=== PATIENT | male | born 1990 | race Caucasian/White ===

== ENCOUNTER 2018-03-31 15:44 | Inpatient (IN) | payer SELFPAY ==
[~2018-03-31] VITALS: Ht 185.4 cm; Wt 91.7 kg
[2018-03-31] MEDS ORDERED: HYDROMORPHONE 1MG/1ML INJ IV STA (15:48)
[2018-03-31] MEDS ORDERED: HYDROMORPHONE 2MG/ML 2 MG/ML ML ONE ×2 (15:51→18:59)
[2018-03-31] MEDS ORDERED: SODIUM CHLORIDE 0.9% 1000ML 1,000 ML ONE ×2 (15:53→15:59)
[2018-03-31] MEDS ORDERED: SODIUM CHLORIDE 0.9% 1000ML 1,000 ML IV STA ×2 (16:00)
[2018-03-31] MEDS ORDERED: CEFAZOLIN SOD 1 GM in WATER STERILE 10ML VIAL 10 ML IV STA (16:12)
[2018-03-31] MEDS ORDERED: CEFAZOLIN SOD 1 GM/D5W 50ML 50 ML IV ONE (16:13)
[2018-03-31 16:14] LABS: BASOPHILS # (AUTO) 0.1 (0.0-0.1); BASOPHILS % 1.3 % (0.0-1.0); EOSINOPHILS # (AUTO) 1.1 (0.0-0.4); EOSINOPHILS % 11.1 % (0.0-6.0); HEMOGLOBIN 12.5 g/dL (14.0-18.0); LYMPHOCYTES # (AUTO) 3.4 (1.0-3.2); LYMPHOCYTES % 35.4 % (18.0-39.1); MEAN CORPUSCULAR HEMOGLOBIN 32.2 pg (28-32); MEAN CORPUSCULAR HGB CONC 34.7 g/dL (31-35); MEAN CORPUSCULAR VOLUME 92.8 fL (81-99); MONOCYTES % 10.1 % (4.4-11.3); PLATELET COUNT 354 x10e3/uL (140-360); RED BLOOD COUNT 3.88 x10e6/uL (4.3-5.7); RED CELL DISTRIBUTION WIDTH 11.9 % (11.7-14.4)
[2018-03-31] MEDS ORDERED: HYDROMORPHONE 2MG/ML 2 MG/ML ML IV PRN (16:15)
[2018-03-31] MEDS ORDERED: VANCOMYCIN 1GM/NS 250 ML 250 ML IV STA (16:27)
[2018-03-31] MEDS ORDERED: PIPER-TAZ 3.375 GM 50 ML IV STA (16:27)
[2018-03-31] MEDS ORDERED: CEFAZOLIN SOD 1 GM VIAL IV ONE (16:30)
--- NOTE | 2018-03-31 16:31 | Diagnostic Imaging Report ---
EXAM: FOREARM RIGHT 2 VIEW DATE: 03/31/2018 3:56 PM INDICATION: Injury/laceration COMPARISON: None FINDINGS: There is a large laceration in the mid forearm with overlying bandage material. There is minimal cortical irregularity in the radius without kong fracture. Adjacent oblique lucency has the appearance of vascular channel. IMPRESSION: Large soft tissue injury of the forearm with minimal cortical disruption of the mid radius. Signed by: Dr. Corby Hogue MD on 03/31/2018 4:28 PM
[2018-03-31 16:34] LABS: ANION GAP 14.5 mmol/L (8-16); BLOOD UREA NITROGEN 12 mg/dL (7-26); BUN/CREATININE RATIO 13 (6-25); CALCIUM 9.7 mg/dL (8.4-10.2); CARBON DIOXIDE 23 mmol/L (22-29); CHLORIDE 105 mmol/L (98-107); CREATININE, SERUM 0.91 mg/dL (0.72-1.25); EST GLOMERULAR FILTRATION RATE > 60 ML/MIN (60-); GLUCOSE 138 mg/dL (74-118); POTASSIUM 3.5 mmol/L (3.5-5.1); SODIUM 139 mmol/L (136-145)
[2018-03-31] MEDS ORDERED: BUPIVACAINE HCL 0.5% INJ 30 ML VIAL INJ ONE (16:42)
[2018-03-31] MEDS ORDERED: MUPIROCIN 2% OINT 22 GM TUBE ONE (16:42)
[2018-03-31 16:44] LABS: INR 0.93; PROTHROMBIN TIME 13.3 seconds (11.9-14.5)
[2018-03-31] MEDS ORDERED: FENTANYL CITRATE/PF 100MCG/2 ML INJ IV ONE (16:45)
[2018-03-31] MEDS ORDERED: FENTANYL CITRATE/PF 100MCG/2 ML INJ ONE ×3 (16:47→19:27)
[2018-03-31] MEDS ORDERED: BACITRACIN 50,000 UNIT VIAL ONE (17:05)
[2018-03-31] MEDS ORDERED: TETANUS/DIPHTHERIA TOX ADULT 0.5 ML SYR ONE (17:12)
[2018-03-31] MEDS ORDERED: TETANUS/DIPHTHERIA TOX ADULT 0.5 ML SYR IM ONE (17:15)
[2018-03-31] MEDS ORDERED: MIDAZOLAM HCL 2 MG/2 ML VIAL ONE (18:19)
[2018-03-31] MEDS ORDERED: MEPERIDINE HCL INJ 50 MG/ML INJ ONE ×2 (18:30→18:42)
[2018-03-31] MEDS ORDERED: ONDANSETRON HCL INJ 2 MG/ML VIAL IV PRN (19:30)
[2018-03-31] MEDS ORDERED: ACETAMINOPHEN 325 MG TAB PO PRN (19:30)
[2018-03-31] MEDS ORDERED: HYDRALAZINE HCL 20 MG/ML VIAL IV PRN (19:30)
[2018-03-31] MEDS ORDERED: ACETAMINOPHEN/CODEINE 300MG - 30MG TAB PO PRN (19:30)
[2018-03-31] MEDS ORDERED: PROPOFOL IV EMULSION 10 MG/ML 20 ML VIAL ONE (19:39)
[2018-03-31] MEDS ORDERED: SEVOFLURANE INHAL SOLN 250 ML PEN BTL ONE (19:39)
[2018-03-31] MEDS ORDERED: ONDANSETRON HCL INJ 2 MG/ML VIAL ONE (19:39)
[2018-03-31] MEDS ORDERED: LIDOCAINE HCL 2% LOCAL INJ 5 ML SDV VIAL INJ ONE (19:39)
[2018-03-31] MEDS ORDERED: DEXAMETHASONE SOD PHOS INJ 4 MG/ML VIAL ONE (19:39)
[2018-03-31 19:43] VITALS: BP 134/74
[2018-03-31 20:00] VITALS: BP 134/74
[2018-03-31] MEDS ORDERED: HYDROMORPHONE 1MG/1ML INJ IV PRN (20:30)
[2018-03-31] MEDS: DEXTROSE 5%/LACTATED RINGERS 1,000 ML IV SCH (21:01)
[2018-03-31] MEDS: HYDROCODONE/APAP 7.5MG-325MG 1 EA TAB PO PRN (21:02)
[2018-03-31] MEDS: CEFAZOLIN SOD 1 GM VIAL IV SCH (23:57)
[2018-03-31] MEDS: HYDROMORPHONE 2MG/ML 2 MG/ML ML IV PRN (23:57)
[2018-04-01] VITALS: BP 136/63
[2018-04-01] MEDS ORDERED: CEFAZOLIN SOD 1 GM in WATER STERILE 10ML VIAL 10 ML IV SCH ×2
[2018-04-01 03:52] LABS: BASOPHILS % 0.2 % (0.0-1.0); EOSINOPHILS % 0.1 % (0.0-6.0); HEMATOCRIT 32.7 % (38.2-49.6); HEMOGLOBIN 11.2 g/dL (14.0-18.0); LYMPHOCYTES # (AUTO) 0.9 (1.0-3.2); LYMPHOCYTES % 7.3 % (18.0-39.1); MEAN CORPUSCULAR HEMOGLOBIN 31.9 pg (28-32); MEAN CORPUSCULAR HGB CONC 34.3 g/dL (31-35); MEAN CORPUSCULAR VOLUME 93.2 fL (81-99); MONOCYTES # (AUTO) 0.9 (0.2-0.8); NEUTROPHILS # (AUTO) 10.5 (2.1-6.9); NEUTROPHILS % 85.1 % (38.7-80.0); PLATELET COUNT 284 x10e3/uL (140-360); RED BLOOD COUNT 3.51 x10e6/uL (4.3-5.7); RED CELL DISTRIBUTION WIDTH 11.9 % (11.7-14.4)
[2018-04-01] MEDS: HYDROCODONE/APAP 7.5MG-325MG 1 EA TAB PO PRN ×2 (03:53→10:57)
[2018-04-01 04:00] VITALS: BP 110/53
[2018-04-01 04:10] LABS: ANION GAP 12.8 mmol/L (8-16); BLOOD UREA NITROGEN 8 mg/dL (7-26); BUN/CREATININE RATIO 12 (6-25); CALCIUM 8.9 mg/dL (8.4-10.2); CARBON DIOXIDE 22 mmol/L (22-29); CHLORIDE 105 mmol/L (98-107); CREATININE, SERUM 0.69 mg/dL (0.72-1.25); EST GLOMERULAR FILTRATION RATE > 60 ML/MIN (60-); GLUCOSE 169 mg/dL (74-118); MAGNESIUM 1.8 MG/DL (1.3-2.1); POTASSIUM 3.8 mmol/L (3.5-5.1); SODIUM 136 mmol/L (136-145)
[2018-04-01] MEDS: DEXTROSE 5%/LACTATED RINGERS 1,000 ML IV SCH ×2 (05:09→12:15)
[2018-04-01] MEDS ORDERED: FAMOTIDINE 20 MG TAB PO SCH (07:30)
[2018-04-01 08:00] VITALS: BP 115/56
[2018-04-01] MEDS: CEFAZOLIN SOD 1 GM VIAL IV SCH ×2 (08:10→15:35)
[2018-04-01] MEDS: HYDROMORPHONE 2MG/ML 2 MG/ML ML IV PRN ×2 (08:10→15:45)
[2018-04-01 08:20] VITALS: BP 115/56
--- NOTE | 2018-04-01 08:40 | Operative Report ---
DATE OF PROCEDURE: March 31, 2018 PREOPERATIVE DIAGNOSIS: Chainsaw injury, right forearm, dorsal radial aspect, mid level. POSTOPERATIVE DIAGNOSES: 1. Laceration of dorsal sensory branch, radial nerve. 2. Laceration of extensor carpi radialis brevis. 3. Laceration of extensor carpi radialis longus. 4. Laceration of extensor digitorum communis. PROCEDURES: 1. Exploration of penetrating injury, right forearm. 2. Debridement of radius and soft tissues. 3. Primary neurorrhaphy of radial sensory nerve. 4. Repair of musculotendinous units, extensor carpi radialis longus and extensor carpi radialis brevis, muscle repair of extensor digitorum communis. ANESTHESIA: General. HISTORY: The patient is a 28-year-old right hand dominant male who today sustained a chainsaw injury to the dorsal radial aspect of the right forearm just at the musculotendinous units. The patient was seen urgently and taken to the OR for urgent exploration and repair of injured structures. On physical exam in the emergency room, the patient was able to extend the wrist, however, it had ulnar deviation and all fingers including the thumb extended. The risks, benefits, and alternatives of treatment were discussed with the patient and the family and they are prepared to undergo the procedures outlined. DETAILS OF PROCEDURE: Patient was marked preoperatively in the holding area, is brought to the operating theater, and after the induction of adequate general anesthesia, the right upper extremity was exsanguinated, and a tourniquet was inflated to a pressure of 250 mmHg. This was done to prevent significant blood loss during the prep. At this point, the bandage was removed and the arm was prepped and draped in a sterile fashion. The procedure was begun by pulse lavaging the wound with 3 liters of antibiotic containing solution in order to remove all of the particulate matter and cleanse the wound. Once this was done, exploration of the wound revealed the cortical surface of the radius to have been damaged. Small bony fragments were then removed. On the radial side of the wound, the radial sensory nerve was identified both proximally and distally. It had its ends transected approximately 2 mm on each side to remove the damaged tissue, and then a primary neurorrhaphy using 6-0 Prolene sutures in an interrupted epineural fashion was performed. At this point, the ECRL and ECRB tendons just dorsal and radial to the nerve were identified, and with the wrist on extension, these musculotendinous units were repaired with 4-0 Prolene in figure-of-8 fashion. The EDC muscle belly just ulnar to these tendons was debrided and then repaired using 3-0 Vicryl sutures in interrupted figure-of-8 fashion. The superficial tissues were sharply debrided of the devitalized tissues, and a 1/4-inch Jazmine drain was placed subcutaneously, and the skin was approximated with surgical clips. A sterile bulking conforming bandage was applied to the forearm, wrist, and hand. Fiberglass splint was fashioned to maintain the wrist in extension and the MPs at 60 to 70 degrees of flexion and the IPs neutral. This was held in place with loosely wrapped Graham wrap. Tourniquet was deflated. All the fingers pinked up nicely. The wound was hemostatic, and the patient was returned to recovery room in satisfactory condition and then admitted for postoperative care and treatments. Job#: [id number]
[2018-04-01] MEDS ORDERED: MUPIROCIN 2% OINT 22 GM TUBE TOP SCH (09:00)
[2018-04-01 12:08] VITALS: BP 121/57
[2018-04-01] MEDS ORDERED: KEFLEX500 MG PO (15:16)
[2018-04-01] MEDS ORDERED: NORCO 7.5-3251 EACH PO (15:17)
[2018-04-01 16:30] VITALS: BP 121/67
--- NOTE | 2018-04-01 16:53 | Discharge Summary ---
ADMITTING DIAGNOSES 1. Right forearm chainsaw injury. 2. Bradycardia. 3. Tobacco use. DISCHARGE DIAGNOSES 1. Right forearm chainsaw injury. 2. Bradycardia. 3. Tobacco use. HISTORY: The patient has no medical history and no surgical history. HOSPITAL COURSE: This 28-year-old male was admitted status post chainsaw injury to right forearm yesterday while at work. He says he was cutting a tree limb, and the chainsaw slipped. The pain is worsened with lifting the affected arm and improved with IV pain meds. Immediately following the injury, the patient noted bleeding and pain. Numbness began after holding pressure to reduce bleeding. On admission, the patient had x-ray of the right forearm that showed a large soft-tissue injury of the forearm with minimal cortical disruption of the mid radius. The patient was then sent to surgery and had exploration of penetrating injury of the right forearm, debridement of the radius and soft tissues, primary neurorrhaphy of radial sensory nerve, repair of musculotendinous units, extensor carpi radialis longus and extensor carpi radialis brevis, muscle repair of extensor digitorum communis. After surgery, the patient is feeling much better. Vital signs are stable. Patient is afebrile. Per ortho, the patient can discharge home with Keflex and pain medicine. He will follow up with ortho as discussed and primary care in 1 to 2 weeks. The patient and his understand discharge instructions and agree to plan. Dictated by: Maryjane Church NP FERNANDEZ WESLEY MD Job#: [id number]
--- OUTSIDE RECORDS SUMMARY | 2018-04-06 12:48 | XMS REPORT ---
Author Author [facility] Address Unknown Phone Unavailable Care Team Providers Care [place] Administrator Name Role Phone Elroy YOUNG Unavailable Unavailable Problems This patient has no known problems. Allergies, Adverse Reactions, Alerts This patient has no known allergies or adverse reactions. Medications This patient has no known medications. Results Test Description Test Time Test Comments Text Results Atomic Results Result Comments FOREARM RIGHT 2 VIEW 2018-03-31 16:26:00 [place] [address] Patient Name: JACINTA AGUILAR MR #: [id number] : 1990 Age/Sex: 28/M Req #: [id number] Adm Physician: Ordered by: BIPIN YOUNG MD Report #: [id number] Location: ER Room/Bed: Procedure: [id number] DX/FOREARM RIGHT 2 VIEW Exam Date: 03/31/18 Exam Time: 1615 REPORT STATUS: Signed EXAM: FOREARM RIGHT 2 VIEW DATE: 03/31/2018 3:56 PM INDICATION: Injury/laceration COMPARISON: None FINDINGS: There is a large laceration in the mid forearm with overlying bandage material. There is minimal cortical irregularity in the radius without kong fracture. Adjacent oblique lucency has the appearance of vascular channel. IMPRESSION: Large soft tissue injury of the forearm with minimal cortical disruption of the mid radius. Signed by: Dr. Corby Youngblood MD on 03/31/2018 4:28 PM Dictated By: CORBY YOUNGBLOOD MD 27 Transcribed By: SUSANA on 03/31/181627 COPY TO: BIPIN YOUNG MD
== END 2018-04-01 17:28 | disposition home or self-care (01) | DRG 41 ==
LOC: ER 15:44 → ERHOLD 16:57 → UNDOADMOB 16:57 → OR 17:30 → MED/SURG 19:11
PROVIDERS: ADMIT Internal Medicine; ATTEND Internal Medicine
PROC: 01Q60ZZ Repair Radial Nerve, Open Approach (ICD-10-PCS; 2018-03-31)
PROC: 0LB50ZZ Excision of Right Lower Arm and Wrist Tendon, Open Approach (ICD-10-PCS; 2018-03-31)
PROC: 0LQ50ZZ Repair Right Lower Arm and Wrist Tendon, Open Approach (ICD-10-PCS; 2018-03-31)
PROC: 0KQ90ZZ Repair Right Lower Arm and Wrist Muscle, Open Approach (ICD-10-PCS; 2018-03-31)
PROC: 01Q40ZZ Repair Ulnar Nerve, Open Approach (ICD-10-PCS; 2018-03-31)
PROC: 0PBH0ZZ Excision of Right Radius, Open Approach (ICD-10-PCS; 2018-03-31)
PROC: 0JBG0ZZ Excision of Right Lower Arm Subcutaneous Tissue and Fascia, Open Approach (ICD-10-PCS; principal; 2018-03-31 17:00)
DX: S64.21XA Injury of radial nerve at wrist and hand level of right arm, initial encounter (principal); S66.821A Laceration of other specified muscles, fascia and tendons at wrist and hand level, right hand, initial encounter; S61.511A Laceration without foreign body of right wrist, initial encounter; W31.82XA Contact with other commercial machinery, initial encounter; Y93.H3 Activity, building and construction; Y92.69 Other specified industrial and construction area as the place of occurrence of the external cause; F17.210 Nicotine dependence, cigarettes, uncomplicated; R00.1 Bradycardia, unspecified; S64.01XA Injury of ulnar nerve at wrist and hand level of right arm, initial encounter
CPT/HCPCS: 36415; 80048; 83735; 85025; 85610; 85730; 86850; 86900; 90471; 90714; 99284; J0690; J1100; J2001; J2175; J2250; J2405; J2543; J7030

== ENCOUNTER 2020-05-22 12:29 | Emergency (ER) | payer SELFPAY ==
[~2020-05-22] VITALS: Ht 185.4 cm; Wt 91.6 kg
[~2020-05-22 12:29] MED LIST: KEFLEX500 MG PO; NORCO 7.5-3251 EACH PO
[2020-05-22] MEDS ORDERED: FAMOTIDINE 20 MG/2 ML VIAL IV STA (12:48)
[2020-05-22] MEDS ORDERED: SODIUM CHLORIDE 0.9% 1000ML 1,000 ML IV SCH (13:00)
[2020-05-22] MEDS ORDERED: METHYLPREDNISOLONE SOD SUCC 125 MG/2ML VIAL IV ONE (13:00)
[2020-05-22] MEDS ORDERED: DIPHENHYDRAMINE HCL INJ 50 MG/ML VIAL IV ONE (13:00)
== END 2020-05-22 16:17 | disposition home or self-care (01) ==
LOC: ER 12:56
DX: T63.441A Toxic effect of venom of bees, accidental (unintentional), initial encounter (principal); Y93.H2 Activity, gardening and landscaping; Y92.007 Garden or yard of unspecified non-institutional (private) residence as the place of occurrence of the external cause; F17.200 Nicotine dependence, unspecified, uncomplicated
CPT/HCPCS: 99284

== ENCOUNTER 2021-01-19 22:19 | Emergency (ER) | payer SELFPAY ==
[~2021-01-19] VITALS: Ht 185.4 cm; Wt 91.6 kg
== END 2021-01-20 00:12 | disposition left against medical advice (07) ==
LOC: ER 23:34
DX: S00.93XA Contusion of unspecified part of head, initial encounter (principal); S40.011A Contusion of right shoulder, initial encounter; S60.211A Contusion of right wrist, initial encounter; S50.11XA Contusion of right forearm, initial encounter; S80.11XA Contusion of right lower leg, initial encounter; S90.01XA Contusion of right ankle, initial encounter; Z53.29 Procedure and treatment not carried out because of patient's decision for other reasons; V29.9XXA Motorcycle rider (driver) (passenger) injured in unspecified traffic accident, initial encounter; Z72.0 Tobacco use